=== PATIENT | male | born 1950 | race Caucasian/White ===

== ENCOUNTER → 2017-06-05 | Outpatient (CLI) | payer MEDICARE, OTHER ==
[~2017-06-05] MED LIST: ALAVERT10 M1 PO; ALDACTAZIDE 25/1 TAB PO; ALDACTONE 25MG25 M1 PO; ASPIR-LOW81 MG PO; ASPIRIN E.C. 8181 MG PO; CALCIUM CARBON500 M1 PO; CELEBREX 200MG200 MG PO; FIBER CHOICE1 CTB PO; FISH OIL CONC1000 MG PO; FISH OIL CONCEN1 SG1 PO; FLONASE NASAL S16 GM NS; FOLIC ACID 11 MG/TA1 PO; FOSAMAX 70MG TA70 MG PO; GABAPENTIN100 M1 PO; GLUCOPHAGE500 MG/TAB PO; GLUCOSAMINE PO; HCTZ 25MG TAB25 MG PO; IMURAN100 MG; K-PHOS NEUTRAL EP; MAGNESIUM OXIDE PO; MESTINON 6060 MG/TAB PO; MOBIC15 MG PO; NEURONTIN300 MG/CAP PO; PHENYLEPHRINE HCL; POTASSIUM CH2 MEQ/ML PO; PREDNISONE10 MG; PRENATAL VITAMI1 TAB PO; PRILOSEC 20MG20 MG PO; PYRIDOSTIGMINE PO; REGLAN 5MG T5 MG/TAB PO; REMERON30 MG PO; SINGULAIR10 MG PO; STOOL SOFTENER100 MG PO; TYLENOL 500MG500 MG PO; VITAMIN D1000 IU PO; XANAX0.5 MG PO; [UNRECOGNIZED DRUG - OTHER] PO
== END ==
LOC: COL.RAD 15:36
DX: M41.85 Other forms of scoliosis, thoracolumbar region (principal)

== ENCOUNTER → 2017-07-09 | Outpatient (CLI) | payer MEDICARE, OTHER | LOC: COL.RAD 12:13 | DX: M54.5 Low back pain (principal); Z53.9 Procedure and treatment not carried out, unspecified reason ==

== ENCOUNTER → 2017-07-15 | Outpatient (CLI) | payer MEDICARE, OTHER | LOC: COL.RAD 12:02 | DX: Z01.812 Encounter for preprocedural laboratory examination (principal); M41.86 Other forms of scoliosis, lumbar region; M46.86 Other specified inflammatory spondylopathies, lumbar region; M51.27 Other intervertebral disc displacement, lumbosacral region; M48.07 Spinal stenosis, lumbosacral region; Z98.890 Other specified postprocedural states | CPT/HCPCS: A9585 ==

== ENCOUNTER → 2017-07-28 | Outpatient (CLI) | payer MEDICARE, OTHER | LOC: MHCPAIN 13:26 | DX: G89.29 Other chronic pain (principal); M47.817 Spondylosis without myelopathy or radiculopathy, lumbosacral region; M53.3 Sacrococcygeal disorders, not elsewhere classified; M96.1 Postlaminectomy syndrome, not elsewhere classified; M41.9 Scoliosis, unspecified; F17.200 Nicotine dependence, unspecified, uncomplicated | CPT/HCPCS: G0463 ==

== ENCOUNTER → 2017-09-30 | Outpatient (CLI) | payer MEDICARE, OTHER | LOC: MHCPAIN 13:25 | DX: G89.29 Other chronic pain (principal); M47.27 Other spondylosis with radiculopathy, lumbosacral region; M53.3 Sacrococcygeal disorders, not elsewhere classified; M96.1 Postlaminectomy syndrome, not elsewhere classified; F17.200 Nicotine dependence, unspecified, uncomplicated | CPT/HCPCS: G0463 ==

== ENCOUNTER → 2017-10-09 | Outpatient (CLI) | payer MEDICARE, OTHER | LOC: MHCPAIN 13:06 | DX: M47.27 Other spondylosis with radiculopathy, lumbosacral region (principal); M96.1 Postlaminectomy syndrome, not elsewhere classified; M51.26 Other intervertebral disc displacement, lumbar region; Z98.1 Arthrodesis status | CPT/HCPCS: J1100; J3010; Q9967 ==

== ENCOUNTER → 2017-10-21 | Outpatient (CLI) | payer MEDICARE, OTHER | LOC: MHCPAIN 13:06 | DX: G89.29 Other chronic pain (principal); M47.27 Other spondylosis with radiculopathy, lumbosacral region; M48.061 Spinal stenosis, lumbar region without neurogenic claudication; M96.1 Postlaminectomy syndrome, not elsewhere classified; F17.200 Nicotine dependence, unspecified, uncomplicated | CPT/HCPCS: G0463 ==

== ENCOUNTER → 2017-11-13 | Outpatient (CLI) | payer MEDICARE, OTHER | LOC: MHCPAIN 12:29 | DX: M47.27 Other spondylosis with radiculopathy, lumbosacral region (principal); M51.06 Intervertebral disc disorders with myelopathy, lumbar region; M96.1 Postlaminectomy syndrome, not elsewhere classified | CPT/HCPCS: J1100; Q9967 ==

== ENCOUNTER → 2017-12-16 | Outpatient (CLI) | payer MEDICARE, OTHER | LOC: MHCPAIN 13:50 | DX: G89.29 Other chronic pain (principal); M47.27 Other spondylosis with radiculopathy, lumbosacral region; M48.061 Spinal stenosis, lumbar region without neurogenic claudication; M53.3 Sacrococcygeal disorders, not elsewhere classified; M96.1 Postlaminectomy syndrome, not elsewhere classified; F17.200 Nicotine dependence, unspecified, uncomplicated | CPT/HCPCS: G0463 ==

== ENCOUNTER → 2018-01-12 | Outpatient (CLI) | payer MEDICARE, OTHER | LOC: MHCPAIN 14:59 | DX: G89.29 Other chronic pain (principal); M47.27 Other spondylosis with radiculopathy, lumbosacral region; M48.061 Spinal stenosis, lumbar region without neurogenic claudication; M53.3 Sacrococcygeal disorders, not elsewhere classified; M96.1 Postlaminectomy syndrome, not elsewhere classified; F17.200 Nicotine dependence, unspecified, uncomplicated | CPT/HCPCS: G0463 ==

== ENCOUNTER → 2018-03-24 | Outpatient (CLI) | payer MEDICARE, OTHER | LOC: MHCPAIN 13:33 | DX: G89.29 Other chronic pain (principal); M47.817 Spondylosis without myelopathy or radiculopathy, lumbosacral region; M54.16 Radiculopathy, lumbar region; M53.3 Sacrococcygeal disorders, not elsewhere classified; M96.1 Postlaminectomy syndrome, not elsewhere classified; M48.061 Spinal stenosis, lumbar region without neurogenic claudication; M41.9 Scoliosis, unspecified | CPT/HCPCS: G0463 ==

== ENCOUNTER → 2018-06-23 | Outpatient (CLI) | payer MEDICARE, OTHER | LOC: MHCPAIN 10:48 | DX: G89.29 Other chronic pain (principal); M47.817 Spondylosis without myelopathy or radiculopathy, lumbosacral region; M54.16 Radiculopathy, lumbar region; M53.3 Sacrococcygeal disorders, not elsewhere classified; M96.1 Postlaminectomy syndrome, not elsewhere classified; M47.814 Spondylosis without myelopathy or radiculopathy, thoracic region; M41.9 Scoliosis, unspecified | CPT/HCPCS: G0463 ==

== ENCOUNTER → 2018-07-08 | Outpatient (CLI) | payer MEDICARE, OTHER | LOC: COL.RAD 14:33 | DX: M51.36 Other intervertebral disc degeneration, lumbar region (principal); M41.86 Other forms of scoliosis, lumbar region; Z95.0 Presence of cardiac pacemaker ==

== ENCOUNTER 2018-09-11 11:35 | Day surgery (SDC) | payer MEDICARE, OTHER ==
[~2018-09-11] VITALS: Ht 170.2 cm; Wt 68.5 kg
[~2018-09-11 11:35] MED LIST changes: -FLONASE NASAL S16 GM NS; +FLONASEALLERGY NS; +NASAL DECONGEST10 MG PO; -PHENYLEPHRINE HCL; +STOOL SOFTENER100 M2 PO; -STOOL SOFTENER100 MG PO; -VITAMIN D1000 IU PO; +VITAMIN D31000 I1 PO
[2018-09-11 12:26] LABS: HEMATOCRIT 40.7 % (42.0-52.0); HEMOGLOBIN 13.6 g/dl (13.5-18.0); MEAN CELL VOLUME 99 fl (80.0-100.0); MEAN CORPUSCULAR HEMOGLOBIN 33 pg (27.0-31.0); MEAN CORPUSCULAR HGB CONC 33 g/dl (33.0-37.0); MEAN PLATELET VOLUME 9.7 fl (7.4-10.4); PLATELET COUNT 238 K/mm3 (130-400); RED BLOOD COUNT 4.13 M/mm3 (4.20-5.60)
[2018-09-11 12:31] LABS: PROTHROMBIN TIME 11.1 SECONDS (9.7-12.8)
[2018-09-11] MEDS ORDERED: ULTRAM 50MG TAB50 MG PO (12:56)
[2018-09-11] MEDS ORDERED: MOBIC 7.5MG7.5 MG PO (12:57)
[2018-09-11] MEDS ORDERED: ZANAFLEX CAPSULE2 MG PO (12:58)
[2018-09-11] MEDS ORDERED: IMURAN 50MG TAB50 MG PO (13:00)
[2018-09-11] MEDS ORDERED: VENTOLIN0.09 MG IH (13:02)
[2018-09-11 13:03] LABS: CALCIUM 9.4 mg/dL (8.4-10.2); CREATININE, serum 0.63 mg/dL (0.66-1.25)
[2018-09-11] MEDS ORDERED: PULMICORT90 MCG/Act IH (13:03)
[2018-09-11 13:08] VITALS: BP 154/78; PULSE 70; TEMP 97.9
[2018-09-11] MEDS ORDERED: RESTORE OP (13:26)
--- NOTE | 2018-09-11 13:34 | NUR ---
Patient to procedure at this time.
[2018-09-11 13:43] VITALS: BP 170/91; PULSE 74
--- NOTE | 2018-09-11 13:47 | NUR ---
ALL MEDICATIONS GIVEN BY VERBAL ORDER WITH READBACK BY MD. SEE MERGE FOR ALL FLEET SALESPERSON TIMES.
--- NOTE | 2018-09-11 14:34 | NUR ---
Report received pt will transfer upstairs after procedure
--- NOTE | 2018-09-11 15:00 | NUR ---
Arrived to the floor at this time. Site checked to the right groin. No bruise, ooze or redness present. The patient was oriented to the room. No pain or needs at this time. Will continue to monitor. The call light is in place.
--- NOTE | 2018-09-11 19:04 | NUR ---
Site remained check q 1 hour without changes. No pain at present. Bedrest over at 1830. Used the urinal well prior. Report given to DAKOTA Tao to resume care.
[2018-09-11 19:52] VITALS: BP 158/71; PULSE 66; TEMP 97.8
--- NOTE | 2018-09-11 22:05 | NUR ---
Patient resting in bed. Ambulated first 3 times with this nurse. A little unsteady first time, but has since been ambulating without difficulty. Assessment completed, access site to right groin looks C/D/I, soft.
--- NOTE | 2018-09-11 22:30 | NUR ---
Care taken over from Aislinn RN- pt alert/oriented- pleasant, right groin site dry and intact, soft. no hematoma-- Up to bathroom, voiding. Tele on. INT left hand-- wants to wait just a little longer to take his remeron and xanax-- instricted to call when ready for night meds-
[2018-09-12 00:20] VITALS: BP 139/68; PULSE 70; TEMP 97.6
[2018-09-12 05:01] VITALS: BP 148/81; PULSE 71; TEMP 97.5
--- NOTE | 2018-09-12 05:37 | NUR ---
Quiet night- rested well throughout the night- right groin dressing remains dry and intact, soft, no hematoma. Has been up to void-
[2018-09-12 09:15] VITALS: BP 156/74; PULSE 65; TEMP 97.9
--- NOTE | 2018-09-12 10:12 | NUR ---
Listened to and visited with the patient who was preparing to get released.
--- NOTE | 2018-09-12 10:35 | NUR ---
Pt alert and oriented and ready to go home. DC orders received but pt not able to drive until 24 s/p sedation yesterday which is 1415 today. Pt plans to leave after that then. Pt denies pain and SOB. Pt has call light in reach.
--- NOTE | 2018-09-12 13:34 | NUR ---
Dr. Momin contacted to clarify Plavix. Pt has instructions to take ASA and plavix but no Plavix ordered. This nurse will call to pharmacy. Pt updated and educated.
--- NOTE | 2018-09-12 14:10 | NUR ---
Plan to return home. SW met with pt briefly to assess care needs. PT inficated that he does not require any DME, use [facility] for RX-short in [place], and [facility] script for all others. DPOA is Bhavna Luz. Pt indicated that he will transport self home and does not have any care concerns.
--- NOTE | 2018-09-12 14:55 | NUR ---
Pt given discharge instructions and pt verbalizes understanding. Clarified with regarding Plavix and order received to take Plavix 75mg daily and script called to [facility] pharmacy in [place]. Pt IV dc'd in left hand and wrapped with coband no bleeding. Pt telemetry dc'd. Pt has all belongings. Pt plans to drive since 24 hours now post sedation. Pt did not want scheduled 1400 meds. Pt to take at home. Pt given his home med trays that were in pt's bin. Pt will be escorted out by nurse to car.
== END 2018-09-12 14:59 | disposition home or self-care (01) ==
LOC: COL.CAR 11:35 → MEDICAL 15:33 → COL.CAR 09-12 14:59
PROVIDERS: Internal Medicine Interventional Cardiology
DX: I25.10 Atherosclerotic heart disease of native coronary artery without angina pectoris (principal); I73.9 Peripheral vascular disease, unspecified; I11.0 Hypertensive heart disease with heart failure; I50.22 Chronic systolic (congestive) heart failure; E78.5 Hyperlipidemia, unspecified; Z95.0 Presence of cardiac pacemaker; J44.9 Chronic obstructive pulmonary disease, unspecified; Z79.899 Other long term (current) drug therapy; Z79.82 Long term (current) use of aspirin; I72.3 Aneurysm of iliac artery; I83.90 Asymptomatic varicose veins of unspecified lower extremity; R25.2 Cramp and spasm; Z98.61 Coronary angioplasty status; Z98.84 Bariatric surgery status; F32.9 Major depressive disorder, single episode, unspecified; G70.00 Myasthenia gravis without (acute) exacerbation; Z88.8 Allergy status to other drugs, medicaments and biological substances
CPT/HCPCS: OP; C1760; C1894; J1644; J2250; J3010; J7500; Q9967

== ENCOUNTER → 2018-09-22 | Outpatient (CLI) | payer MEDICARE, OTHER ==
[~2018-09-22] MED LIST changes: +IMURAN 50MG TAB50 MG PO; +MOBIC 7.5MG7.5 MG PO; +PULMICORT90 MCG/Act IH; +RESTORE OP; +ULTRAM 50MG TAB50 MG PO; +VENTOLIN0.09 MG IH; +ZANAFLEX CAPSULE2 MG PO
== END ==
LOC: MHCPAIN 10:43
DX: G89.29 Other chronic pain (principal); M47.817 Spondylosis without myelopathy or radiculopathy, lumbosacral region; M54.16 Radiculopathy, lumbar region; M53.3 Sacrococcygeal disorders, not elsewhere classified; M96.1 Postlaminectomy syndrome, not elsewhere classified; M47.814 Spondylosis without myelopathy or radiculopathy, thoracic region; M41.9 Scoliosis, unspecified
CPT/HCPCS: G0463

== ENCOUNTER → 2018-11-20 | Outpatient (CLI) | payer MEDICARE, OTHER | LOC: COL.RAD 12:10 | DX: M47.816 Spondylosis without myelopathy or radiculopathy, lumbar region (principal); M48.061 Spinal stenosis, lumbar region without neurogenic claudication; M51.36 Other intervertebral disc degeneration, lumbar region; M50.322 Other cervical disc degeneration at C5-C6 level; M48.02 Spinal stenosis, cervical region; Z98.1 Arthrodesis status | CPT/HCPCS: A9585 ==

== ENCOUNTER → 2018-12-07 | Outpatient (CLI) | payer MEDICARE, OTHER | LOC: COL.LAB 14:16 | DX: G70.00 Myasthenia gravis without (acute) exacerbation (principal) ==

== ENCOUNTER → 2018-12-15 | Outpatient (CLI) | payer MEDICARE, OTHER | LOC: MHCPAIN 11:15 | DX: G89.29 Other chronic pain (principal); M47.817 Spondylosis without myelopathy or radiculopathy, lumbosacral region; M54.16 Radiculopathy, lumbar region; M53.3 Sacrococcygeal disorders, not elsewhere classified; M96.1 Postlaminectomy syndrome, not elsewhere classified; M50.90 Cervical disc disorder, unspecified, unspecified cervical region | CPT/HCPCS: G0463 ==

== ENCOUNTER → 2019-01-21 | Outpatient (CLI) | payer MEDICARE, OTHER | LOC: COL.RAD 13:02 | DX: M47.813 Spondylosis without myelopathy or radiculopathy, cervicothoracic region (principal); M48.03 Spinal stenosis, cervicothoracic region; M25.78 Osteophyte, vertebrae; M51.24 Other intervertebral disc displacement, thoracic region; Z98.890 Other specified postprocedural states ==

== ENCOUNTER → 2019-01-26 | Outpatient (CLI) | payer MEDICARE, OTHER | LOC: MHCPAIN 14:04 | DX: G89.29 Other chronic pain (principal); M47.817 Spondylosis without myelopathy or radiculopathy, lumbosacral region; M54.16 Radiculopathy, lumbar region; M53.3 Sacrococcygeal disorders, not elsewhere classified; M96.1 Postlaminectomy syndrome, not elsewhere classified | CPT/HCPCS: G0463 ==

== ENCOUNTER → 2019-02-04 | Outpatient (CLI) | payer MEDICARE, OTHER | LOC: MHCPAIN 12:45 | DX: M47.817 Spondylosis without myelopathy or radiculopathy, lumbosacral region (principal); M54.16 Radiculopathy, lumbar region | CPT/HCPCS: J1100; Q9967 ==

== ENCOUNTER → 2019-03-15 | Outpatient (CLI) | payer MEDICARE, OTHER | LOC: MHCPAIN 11:16 | DX: G89.29 Other chronic pain (principal); M47.817 Spondylosis without myelopathy or radiculopathy, lumbosacral region; M54.16 Radiculopathy, lumbar region; M53.3 Sacrococcygeal disorders, not elsewhere classified; M96.1 Postlaminectomy syndrome, not elsewhere classified | CPT/HCPCS: G0463 ==

== ENCOUNTER → 2019-05-04 | Outpatient (CLI) | payer MEDICARE, OTHER | LOC: MHCPAIN 11:25 | DX: G89.29 Other chronic pain (principal); M47.817 Spondylosis without myelopathy or radiculopathy, lumbosacral region; M54.16 Radiculopathy, lumbar region; M53.3 Sacrococcygeal disorders, not elsewhere classified; M47.814 Spondylosis without myelopathy or radiculopathy, thoracic region | CPT/HCPCS: G0463 ==

== ENCOUNTER → 2019-05-13 | Outpatient (CLI) | payer MEDICARE, OTHER | LOC: MHCPAIN 10:52 | DX: M47.817 Spondylosis without myelopathy or radiculopathy, lumbosacral region (principal); M54.16 Radiculopathy, lumbar region ==

== ENCOUNTER → 2019-05-18 | Outpatient (CLI) | payer MEDICARE, OTHER | LOC: MHCPAIN 15:39 | DX: G89.29 Other chronic pain (principal); M47.817 Spondylosis without myelopathy or radiculopathy, lumbosacral region; M54.16 Radiculopathy, lumbar region; M53.3 Sacrococcygeal disorders, not elsewhere classified; M96.1 Postlaminectomy syndrome, not elsewhere classified; M47.814 Spondylosis without myelopathy or radiculopathy, thoracic region | CPT/HCPCS: G0463 ==

== ENCOUNTER → 2019-06-22 | Outpatient (CLI) | payer MEDICARE, OTHER | LOC: MHCPAIN 14:44 | DX: G89.29 Other chronic pain (principal); M47.817 Spondylosis without myelopathy or radiculopathy, lumbosacral region; M54.16 Radiculopathy, lumbar region; M53.3 Sacrococcygeal disorders, not elsewhere classified; M96.1 Postlaminectomy syndrome, not elsewhere classified; M47.814 Spondylosis without myelopathy or radiculopathy, thoracic region | CPT/HCPCS: G0463 ==

== ENCOUNTER → 2019-07-14 | Outpatient (CLI) | payer MEDICARE, OTHER | LOC: MHCPAIN 12:54 | DX: M47.817 Spondylosis without myelopathy or radiculopathy, lumbosacral region (principal); M96.1 Postlaminectomy syndrome, not elsewhere classified; M54.16 Radiculopathy, lumbar region | CPT/HCPCS: C1883 ==

== ENCOUNTER → 2019-07-21 | Outpatient (CLI) | payer MEDICARE, OTHER | LOC: MHCPAIN 11:05 | DX: G89.29 Other chronic pain (principal); M47.817 Spondylosis without myelopathy or radiculopathy, lumbosacral region; M54.16 Radiculopathy, lumbar region; M53.3 Sacrococcygeal disorders, not elsewhere classified; M96.1 Postlaminectomy syndrome, not elsewhere classified | CPT/HCPCS: G0463 ==

== ENCOUNTER → 2019-10-25 | Outpatient (CLI) | payer MEDICARE, OTHER | LOC: COL.LAB 14:16 | DX: C61 Malignant neoplasm of prostate (principal) ==

== ENCOUNTER → 2019-10-25 | Outpatient (CLI) | payer MEDICARE, OTHER | LOC: MHCPAIN 10:53 | DX: M53.3 Sacrococcygeal disorders, not elsewhere classified (principal); F17.210 Nicotine dependence, cigarettes, uncomplicated | CPT/HCPCS: G0463 ==

== ENCOUNTER → 2020-01-25 | Outpatient (CLI) | payer MEDICARE, OTHER | LOC: MHCPAIN 12:54 | DX: M47.817 Spondylosis without myelopathy or radiculopathy, lumbosacral region (principal); M54.5 Low back pain; M53.3 Sacrococcygeal disorders, not elsewhere classified; G89.29 Other chronic pain | CPT/HCPCS: G0463 ==

== ENCOUNTER → 2020-05-02 | Outpatient (CLI) | payer MEDICARE, OTHER | LOC: MHCPAIN 13:59 | DX: M47.817 Spondylosis without myelopathy or radiculopathy, lumbosacral region (principal); M54.5 Low back pain; M53.3 Sacrococcygeal disorders, not elsewhere classified; M96.1 Postlaminectomy syndrome, not elsewhere classified; G89.29 Other chronic pain; M54.16 Radiculopathy, lumbar region | CPT/HCPCS: G0463 ==

== ENCOUNTER 2020-05-08 14:56 | Emergency (ER) | payer MEDICARE, OTHER ==
[~2020-05-08] VITALS: Ht 170.2 cm; Wt 70.0 kg
[2020-05-08 15:00] VITALS: TEMP 97.9
[2020-05-08 15:41] LABS: BASO % 0.2 % (0.0-2.0); GRAN # 6.8 (1.4-6.5); HEMATOCRIT 42.5 % (42.0-52.0); HEMOGLOBIN 14.1 g/dl (13.5-18.0); LYMPH # 1.7 (1.2-3.4); LYMPH % 19.4 % (20.0-51.0); MEAN CELL VOLUME 102 fl (80.0-100.0); MEAN CORPUSCULAR HEMOGLOBIN 34 pg (27.0-31.0); MEAN CORPUSCULAR HGB CONC 33 g/dl (33.0-37.0); MEAN PLATELET VOLUME 9.5 fl (7.4-10.4); MONO # 0.3 (0.1-0.6); MONO % 3.7 % (1.7-9.3); PLATELET COUNT 264 K/mm3 (130-400); RED BLOOD COUNT 4.15 M/mm3 (4.20-5.60); REDCELL DISTRIBUTION WIDTH-CV 13.7 % (11.5-14.5)
[2020-05-08 15:51] LABS: ALBUMIN 4.2 gm/dL (3.5-5.0); BILIRUBIN,TOTAL 0.5 mg/dL (0.0-1.0); CALCIUM 9.6 mg/dL (8.4-10.2); CREATININE, serum 0.74 (0.66-1.25); POTASSIUM 4.2 mmol/L (3.4-5.0); TOTAL PROTEIN 7.5 gm/dL (6.4-8.2)
[2020-05-08 18:17] VITALS: BP 156/82; PULSE 62
== END 2020-05-08 18:18 | disposition home or self-care (01) ==
LOC: COL.ER 14:56
PROVIDERS: Emergency Medicine
DX: K40.90 Unilateral inguinal hernia, without obstruction or gangrene, not specified as recurrent (principal); R11.10 Vomiting, unspecified; F17.210 Nicotine dependence, cigarettes, uncomplicated; E11.9 Type 2 diabetes mellitus without complications; K21.9 Gastro-esophageal reflux disease without esophagitis; G70.00 Myasthenia gravis without (acute) exacerbation; Z79.4 Long term (current) use of insulin; Z85.46 Personal history of malignant neoplasm of prostate; Z79.891 Long term (current) use of opiate analgesic; Z79.82 Long term (current) use of aspirin
CPT/HCPCS: J2405; J3010; J7030; Q9967

== ENCOUNTER 2020-05-24 09:21 | Observation (INO) | payer MEDICARE, OTHER ==
[~2020-05-24] VITALS: Ht 160 cm; Wt 69.1 kg
[2020-05-24] VITALS (10 sets, daily range): BP systolic 105–168; BP diastolic 61–80; PULSE 60–81; TEMP 97.6–98.9
[~2020-05-24 09:21] MED LIST changes: -FIBER CHOICE1 CTB PO; +FIBER0.52 GM PO; +K-DUR20 MEQ PO; -POTASSIUM CH2 MEQ/ML PO; +PRENATAL VITAMI1 TA3 PO; -PRENATAL VITAMI1 TAB PO; +SINGULAIR 110 MG/TAB PO; -SINGULAIR10 MG PO; +XANAX 0.5MG0.5 MG PO; -XANAX0.5 MG PO
[2020-05-24] MEDS ORDERED: EYE DROP TEARS15 ML OP (10:33)
[2020-05-24] MEDS ORDERED: PREDNISONE10 MG PO (10:35)
[2020-05-24] MEDS ORDERED: GLUCOPHAGE500 MG/TAB PO (10:35)
[2020-05-24] MEDS ORDERED: KAPSPARGO SPRIN25 MG PO (10:36)
[2020-05-24] MEDS ORDERED: PLAVIX 75MG TAB75 MG PO (10:37)
--- NOTE | 2020-05-24 18:28 | NUR ---
Patient has done well post op. Alert & oriented. Minimal pain. Only complaint of pressure from the jock strap. He has tolerated diet. No Nausea. Int. Gauze dressing intact. Scds. Will report off to night nurse
--- NOTE | 2020-05-24 19:07 | NUR ---
Patient provided with rafy gordon-he feels like the large one is too tight.
--- NOTE | 2020-05-24 20:20 | NUR ---
Pt assessment completed and documented. Pt resting in bed at this time watching television. Complaints of pain to left lower back that pt states is chronic. Pt states he would not like to take any of his night time medication until 2200 or 2300. Jock strap in place. Gauze dressing to left groin CDI. INT to right forearm CDI. Pt denies any other needs at this time. Call light within reach. Will continue to monitor
[2020-05-25 04:13] VITALS: BP 132/67; PULSE 71; TEMP 98.4
--- NOTE | 2020-05-25 06:30 | NUR ---
Pt states he was able to get some sleep overnight. Scheduled and PRN pain medication given per orders for complaints of back pain overnight. Jock strap in place. Pt denies any other needs. Call light within reach
[2020-05-25 07:56] VITALS: BP 130/64; PULSE 62; TEMP 98.5
--- NOTE | 2020-05-25 10:30 | NUR ---
Patient has been doing well this morning. He does not like the scrotals upport, he stated it is too tight. Dressing is C/D/I. Patient is eating and drinking without pain or nausea. Patient is hoping to discharge this afternoong. No other changes at this time. Call light within reach.
[2020-05-25 11:48] VITALS: BP 130/62; PULSE 60; TEMP 98.1
--- NOTE | 2020-05-25 13:05 | NUR ---
First visit from the strategic business development. No needs right now.
--- NOTE | 2020-05-25 13:19 | NUR ---
The patient is to discharge home today 05/25. Legal Transcriber met with the patient and his [id number] to complete intake. The patient lives alone in [place]. The patient is independent and has a CPAP. He receives supplies from [facility] in [place]. The patient's PCP is Dr. Ariane Cheema and patient receives medications from [facility] in [place] and [facility], short term and half-way, respectively. The patient has advanced directives. The patient will return home at discharge and has no concerns about doing so. There are no additional needs at this time.
--- NOTE | 2020-05-25 14:00 | NUR ---
Patient is discharging home. Discharge instructions discussed with patient. No questions verbalized. INT discontinued. Explained when follow up appointment is and that it is in [place]. Patient verbalized understanding. Copies of discharge instructions sent with patient. All belongings packed up by patient. Patient walked out via wheel chair.
== END 2020-05-25 14:00 | disposition home or self-care (01) ==
LOC: SDCO 09:21 → JCC 09:22 → SDCO 11:00 → JCC 13:12 → SDCO 13:12 → JCC 23:59
PROVIDERS: ADMIT Surgery
DX: K40.91 Unilateral inguinal hernia, without obstruction or gangrene, recurrent (principal); I11.0 Hypertensive heart disease with heart failure; I50.9 Heart failure, unspecified; E11.42 Type 2 diabetes mellitus with diabetic polyneuropathy; E11.59 Type 2 diabetes mellitus with other circulatory complications; G47.33 Obstructive sleep apnea (adult) (pediatric); J44.9 Chronic obstructive pulmonary disease, unspecified; I25.10 Atherosclerotic heart disease of native coronary artery without angina pectoris; K21.9 Gastro-esophageal reflux disease without esophagitis; F32.9 Major depressive disorder, single episode, unspecified; M85.88 Other specified disorders of bone density and structure, other site; M81.0 Age-related osteoporosis without current pathological fracture; G70.00 Myasthenia gravis without (acute) exacerbation; I73.89 Other specified peripheral vascular diseases; G89.29 Other chronic pain; R56.9 Unspecified convulsions; M19.90 Unspecified osteoarthritis, unspecified site; F17.210 Nicotine dependence, cigarettes, uncomplicated; M41.86 Other forms of scoliosis, lumbar region; F41.9 Anxiety disorder, unspecified; R91.8 Other nonspecific abnormal finding of lung field; Z79.84 Long term (current) use of oral hypoglycemic drugs; Z79.82 Long term (current) use of aspirin; Z79.899 Other long term (current) drug therapy; Z95.0 Presence of cardiac pacemaker; Z98.84 Bariatric surgery status; Z90.89 Acquired absence of other organs; Z85.46 Personal history of malignant neoplasm of prostate; Z90.79 Acquired absence of other genital organ(s); Z79.02 Long term (current) use of antithrombotics/antiplatelets; Z88.8 Allergy status to other drugs, medicaments and biological substances
CPT/HCPCS: OP; C1781; J2250; J2405; J2704; J7030; J7500; J7512

== ENCOUNTER → 2020-08-01 | Outpatient (CLI) | payer MEDICARE, OTHER ==
[~2020-08-01] MED LIST changes: +EYE DROP TEARS15 ML OP; +KAPSPARGO SPRIN25 MG PO; +PLAVIX 75MG TAB75 MG PO; +PREDNISONE10 MG PO
== END ==
LOC: MHCPAIN 13:44
DX: M47.817 Spondylosis without myelopathy or radiculopathy, lumbosacral region (principal); M54.5 Low back pain; M53.3 Sacrococcygeal disorders, not elsewhere classified; G89.29 Other chronic pain; M96.1 Postlaminectomy syndrome, not elsewhere classified
CPT/HCPCS: G0463

== ENCOUNTER → 2020-10-31 | Outpatient (CLI) | payer MEDICARE, OTHER | LOC: MHCPAIN 13:21 | DX: M47.817 Spondylosis without myelopathy or radiculopathy, lumbosacral region (principal); M47.814 Spondylosis without myelopathy or radiculopathy, thoracic region; M53.3 Sacrococcygeal disorders, not elsewhere classified; G89.29 Other chronic pain; M41.87 Other forms of scoliosis, lumbosacral region | CPT/HCPCS: G0463 ==

== ENCOUNTER → 2021-01-30 | Outpatient (CLI) | payer MEDICARE, OTHER | LOC: MHCPAIN 13:28 | DX: M47.816 Spondylosis without myelopathy or radiculopathy, lumbar region (principal); M54.5 Low back pain; M96.1 Postlaminectomy syndrome, not elsewhere classified; G89.29 Other chronic pain | CPT/HCPCS: G0463 ==

== ENCOUNTER → 2021-05-01 | Outpatient (CLI) | payer MEDICARE, OTHER | LOC: MHCPAIN 13:03 | DX: M47.816 Spondylosis without myelopathy or radiculopathy, lumbar region (principal); M41.87 Other forms of scoliosis, lumbosacral region; M54.5 Low back pain; M53.3 Sacrococcygeal disorders, not elsewhere classified; M96.1 Postlaminectomy syndrome, not elsewhere classified | CPT/HCPCS: G0463 ==

== ENCOUNTER → 2021-07-24 | Outpatient (CLI) | payer MEDICARE, OTHER | LOC: MHCPAIN 13:46 | DX: M47.816 Spondylosis without myelopathy or radiculopathy, lumbar region (principal); M54.16 Radiculopathy, lumbar region; M41.87 Other forms of scoliosis, lumbosacral region; M96.1 Postlaminectomy syndrome, not elsewhere classified | CPT/HCPCS: G0463 ==

== ENCOUNTER → 2021-10-16 | Outpatient (CLI) | payer MEDICARE, OTHER | LOC: MHCPAIN 13:42 | DX: M47.817 Spondylosis without myelopathy or radiculopathy, lumbosacral region (principal); M53.3 Sacrococcygeal disorders, not elsewhere classified; M54.16 Radiculopathy, lumbar region; M41.26 Other idiopathic scoliosis, lumbar region; M96.1 Postlaminectomy syndrome, not elsewhere classified | CPT/HCPCS: G0463 ==